=== PATIENT | male | born 1990 | race Caucasian/White ===

== ENCOUNTER 2019-02-16 21:24 | Emergency (ER) | payer SELFPAY | END 2019-02-16 23:01 | disposition left against medical advice (07) | LOC: ER 21:24 | DX: Z53.21 Procedure and treatment not carried out due to patient leaving prior to being seen by health care provider (principal) ==

== ENCOUNTER 2019-02-17 08:51 | Emergency (ER) | payer MEDICAID ==
[~2019-02-17] VITALS: Ht 177.8 cm; Wt 111.0 kg
[2019-02-17] MEDS ORDERED: BACITRACIN ZINC OINT UDPKT TOP ONE (10:00)
[2019-02-17] MEDS ORDERED: ACETAMINOPHEN 325MG TABLET PO ONE (10:00)
[2019-02-17] MEDS ORDERED: TETANUS, DIPHTHERIA, PERTUSSIS VAC/PF 0.5ML (>7YR OLD) IM ONE (10:00)
[2019-02-17 11:34] VITALS: BP 134/89
== END 2019-02-17 11:43 | disposition home or self-care (01) ==
LOC: ER 08:51
DX: S01.81XA Laceration without foreign body of other part of head, initial encounter (principal); W05.1XXA Fall from non-moving nonmotorized scooter, initial encounter; Y93.89 Activity, other specified; Y92.89 Other specified places as the place of occurrence of the external cause; Y99.8 Other external cause status
CPT/HCPCS: 70450; 70486; 72125; 90471; 90715; 99284; A4217; Z7610